=== PATIENT | female | born 1995 | race Caucasian/White ===

== ENCOUNTER 2017-01-16 21:44 | Emergency (ER) | payer BC ==
[~2017-01-16] VITALS: Ht 167.6 cm; Wt 50.3 kg
[2017-01-16 22:01] VITALS: TEMP 36.8; Ht 167.6 cm; Wt 50.3 kg
[2017-01-16 22:38] LABS: MANUAL MICROSCOPIC REQUIRED? YES; URINE APPEARANCE CLEAR (CLEAR); URINE BILIRUBIN NEG (NEG); URINE COLOR YELLOW; URINE NITRITE NEG (NEG); URINE PH 6.5 (4.5-7.5); URINE SPECIFIC GRAVITY 1.015 (1.000-1.030); UROBILINOGEN NEG (NEG)
[2017-01-16 22:42] LABS: BASO % 0.3 %; BASO ABS # 0.03 K/uL (0-0.2); COMPLETE YES; EOS % 0.7 %; HEMATOCRIT 41.3 % (37-47); IG% 0.2 %; LYMPH % 23.5 %; LYMPH ABS # 2.49 K/uL (1.2-3.4); MEAN CORPUSCULAR HGB CONC 36.1 g/dl (32-36); MEAN PLATELET VOLUME 9.5 fL (7.4-10.4); MONO % 5.6 %; NEUT % 69.7 %; PLATELET COUNT 330 K/uL (130-400); WHITE BLOOD COUNT 10.58 K/uL (4.8-10.8)
[2017-01-16 22:49] LABS: REVIEW REQ? NO
[2017-01-16 22:51] LABS: URINE BACTERIA NEG (NEG); URINE RBC 0-4 /hpf (0-4)
[2017-01-16 23:04] LABS: BUN/CREATININE RATIO 14.3 (10-20); CALCIUM 9.4 mg/dl (8.5-10.1); CREATININE 0.71 mg/dl (0.60-1.20); POTASSIUM 3.5 mmol/L (3.5-5.1)
--- NOTE | 2017-01-16 23:06 | DIAGNOSTIC IMAGING REPORT ---
ABDOMINAL ULTRASOUND, RIGHT UPPER QUADRANT HISTORY: epigastric/RUQ pain after eating. COMPARISON: None. FINDINGS: Pancreas: The pancreas demonstrates a normal echotexture. Liver: Unremarkable. Gallbladder: No gallbladder wall thickening. No gallstones. CBD: 3 mm. Right kidney: No hydronephrosis. IMPRESSION: No significant abnormality identified within the right upper quadrant. Electronically signed by: Lucas Mcfarland M.D. 01/16/2017 11:03 PM Dictated Date/Time: 01/16/2017 11:03 PM
[2017-01-16 23:07] LABS: ZZUR CULT IF INDIC CLEAN CATCH NO
[2017-01-16 23:07] LABS: ALB/GLOB RATIO 1.4 (0.9-2)
[2017-01-16 23:13] VITALS: BP 122/83; PULSE 107; O2SAT 100
--- NOTE | 2017-01-16 23:30 | EMERGENCY ROOM VISIT NOTE ---
History First contact with patient: 22:04 Chief Complaint: ABDOMINAL PAIN Stated Complaint: REALLY SHARP PAIN IN STOMACH Nursing Triage Summary: Patient states "I ate [employer] prepared mac and cheese. About 30 minutes later, I developed severe abdominal pain. It starts in the center of my upper abdomen and radiates down both sides. The pain comes and goes. I have had it go up the center of my chest once. I am nauseated too." History of Present Illness The patient is a 21 year old female who presents to the Emergency Room with complaints of abdominal pain which began approximately 8 hours ago. The patient states that the pain came on suddenly after eating macaroni and cheese from [employer]. She states that the pain began in the middle of her upper abdomen and radiated into her lower abdomen bilaterally. The pain was worse with movement. She took Advil without relief. She received initial discomfort a 7/10. The patient states that at this time, the pain has significantly improved and she rates her current discomfort a 2/10. She denies any nausea, vomiting, changes in bowel movements, urinary symptoms or fevers. Her last menstrual period was one week ago. Review of Systems A complete 10-point Review of Systems was discussed with the patient, with pertinent positives and negatives listed in the History of Present Illness. All remaining Review of Systems questions can be considered negative unless otherwise specified. Social History Smoking Status: Never Smoker Physical Exam Vital Signs Date Time Temp Pulse Resp B/P Pulse Ox O2 Delivery O2 Flow Rate FiO2 01/16/17 23:13 107 16 122/83 100 Room Air 01/16/17 22:01 36.8 101 16 116/78 97 Room Air Physical Exam VITALS: Vitals are noted on the nurse's note and reviewed by myself. Vital signs stable. GENERAL: This is a 21-year-old female, in no acute distress, nondiaphoretic, well-developed well-nourished. SKIN: Capillary reflex less than 2 seconds. HEENT: Normocephalic. PERRLA. EOMI. Nares patent. Mucous membranes moist. Neck is supple without nuchal rigidity. HEART: Regular rate and rhythm without murmurs gallops or rubs. LUNGS: Clear to auscultation bilaterally without wheezes, rales or rhonchi. No retractions or accessory muscle use. ABDOMEN: Positive bowel sounds x 4. Soft, minimal tenderness to palpation over the left mid abdomen and epigastric region. No guarding or rebound tenderness. NEURO: Patient was alert and oriented to person place and time. Medical Decision & Procedures ER Provider Diagnostic Interpretation: ABDOMINAL ULTRASOUND, RIGHT UPPER QUADRANT HISTORY: epigastric/RUQ pain after eating. COMPARISON: None. FINDINGS: Pancreas: The pancreas demonstrates a normal echotexture. Liver: Unremarkable. Gallbladder: No gallbladder wall thickening. No gallstones. CBD: 3 mm. Right kidney: No hydronephrosis. IMPRESSION: No significant abnormality identified within the right upper quadrant. Laboratory Results 01/16/17 22:25 Red Blood Count 4.80, Mean Corpuscular Volume 86.0, Mean Corpuscular Hemoglobin 31.0, Mean Corpuscular Hemoglobin Concent 36.1, Mean Platelet Volume 9.5, Neutrophils (%) (Auto) 69.7, Lymphocytes (%) (Auto) 23.5, Monocytes (%) (Auto) 5.6, Eosinophils (%) (Auto) 0.7, Basophils (%) (Auto) 0.3, Neutrophils # (Auto) 7.38, Lymphocytes # (Auto) 2.49, Monocytes # (Auto) 0.59, Eosinophils # (Auto) 0.07, Basophils # (Auto) 0.03 01/16/17 22:25 Test 01/16/17 22:21 01/16/17 22:25 Urine Color YELLOW Urine Appearance CLEAR (CLEAR) Urine pH 6.5 (4.5-7.5) Urine Specific [place] 1.015 (1.000-1.030) Urine Protein NEG (NEG) Urine Glucose (UA) NEG (NEG) Urine Ketones NEG (NEG) Urine Occult Blood TRACE (NEG) Urine Nitrite NEG (NEG) Urine Bilirubin NEG (NEG) Urine Urobilinogen NEG (NEG) Urine Leukocyte Esterase NEG (NEG) Urine RBC 0-4 /hpf (0-4) Urine WBC 1-5 /hpf (0-5) Urine Epithelial Cells >30 /lpf (0-5) Urine Bacteria NEG (NEG) Urine Test NEG (NEG) White Blood Count 10.58 K/uL (4.8-10.8) Red Blood Count 4.80 M/uL (4.2-5.4) Hemoglobin 14.9 g/dL (12.0-16.0) Hematocrit 41.3 % (37-47) Mean Corpuscular Volume 86.0 fL (80-100) Mean Corpuscular Hemoglobin 31.0 pg (25-34) Mean Corpuscular Hemoglobin Concent 36.1 g/dl (32-36) Platelet Count 330 K/uL (130-400) Mean Platelet Volume 9.5 fL (7.4-10.4) Neutrophils (%) (Auto) 69.7 % Lymphocytes (%) (Auto) 23.5 % Monocytes (%) (Auto) 5.6 % Eosinophils (%) (Auto) 0.7 % Basophils (%) (Auto) 0.3 % Neutrophils # (Auto) 7.38 K/uL (1.4-6.5) Lymphocytes # (Auto) 2.49 K/uL (1.2-3.4) Monocytes # (Auto) 0.59 K/uL (0.11-0.59) Eosinophils # (Auto) 0.07 K/uL (0-0.5) Basophils # (Auto) 0.03 K/uL (0-0.2) RDW Standard Deviation 40.1 fL (36.4-46.3) RDW Coefficient of Variation 12.6 % (11.5-14.5) Immature Granulocyte % (Auto) 0.2 % Immature Granulocyte # (Auto) 0.02 K/uL (0.00-0.02) Anion Gap 11.0 mmol/L (3-11) Est Creatinine Clear Calc Drug Dose 99.5 ml/min Estimated GFR () 141.1 Estimated GFR (Non- 121.8 BUN/Creatinine Ratio 14.3 (10-20) Calcium Level 9.4 mg/dl (8.5-10.1) Total Bilirubin 0.6 mg/dl (0.2-1) Aspartate Amino Transf (AST/SGOT) 11 U/L (15-37) Alanine Aminotransferase (ALT/SGPT) 21 U/L (12-78) Alkaline Phosphatase 38 U/L (45-117) Total Protein 8.0 gm/dl (6.4-8.2) Albumin 4.7 gm/dl (3.4-5.0) Globulin 3.3 gm/dl (2.5-4.0) Albumin/Globulin Ratio 1.4 (0.9-2) Lipase 146 U/L (73-393) ED Course The patient was evaluated as above. Labs were drawn and IV access was obtained. Patient declined analgesics. Right upper quadrant ultrasound was performed and read by radiology as above. Patient was reevaluated and had minimal pain. Findings were discussed with the patient. Discharge instructions were reviewed with the patient. The patient verbalized understanding of my assessment and treatment plan and was discharged home in good condition. Medical Decision Differential diagnosis includes cholecystitis, pancreatitis, gastroenteritis, colitis, IBS, peptic ulcer disease, GERD, appendicitis, among others.. The patient is a 21-year-old female who presents today complaining of abdominal pain which began after eating today. Labs revealed no leukocytosis, anemia or concerning electrolyte abnormalities. Urinalysis was not suggestive of infection. Urine was negative. A right upper quadrant ultrasound was performed and showed no evidence of gallbladder disease. The patient's pain had significantly improved on arrival and her abdominal exam was benign. I do not feel that further imaging is indicated at this time. The patient was informed of all findings and instructed to follow-up with [facility]. She was instructed to return sooner if she has worsening pain or any other new/concerning symptoms. The patient's case was reviewed with Dr. Mckeon, ED attending physician, who agreed with my assessment and treatment plan. Impression Primary Impression: Epigastric abdominal pain Departure Information Dispostion Home / Self-Care Condition GOOD Patient Instructions My [facility] Additional Instructions You have been treated in the Emergency Department your Abdominal Pain. Laboratory results and imaging studies have ruled out any emergent causes for your abdominal pain which would warrant admission or surgery. For pain control, you can use the following [id number] medicines (if >12 yo): - Regular strength (325mg/tab) Tylenol (acetaminophen) 2 tabs every 4-6 hours as needed. Do not exceed 12 tablets in a 24 hour period. Avoid taking more than 4 grams (4000 mg) of Tylenol per day. This includes any other sources of acetaminophen you may take on a regular basis. - Regular strength (200 mg/tab) Advil (ibuprofen) 1-2 tabs every 4-6 hours as needed. Do not exceed a dose of 3200 mg per day. Drink plenty of water and stay well hydrated. Follow-up with [facility] within 3-4 days for further evaluation of your abdominal pain. Return to the emergency department if your symptoms persist despite treatment plan outlined above or if the following symptoms occur: Worsening abdominal pain , vomiting, fevers or any other new/concerning symptoms.
== END 2017-01-16 23:40 | disposition home or self-care (01) ==
LOC: C.EDB 21:49
DX: R10.13 Epigastric pain (principal)